=== PATIENT | male | born 1960 | race Caucasian/White ===

== ENCOUNTER 2021-08-12 00:44 | Day surgery (SDC) | payer BC, SELFPAY ==
[2021-07-29 13:41] VITALS: BMI 25.9
--- NOTE | 2021-08-11 16:23 | PM.HPGS ---
History of Present Illness History of Present Illness Consent: Risks, benefits, and alternatives have been discussed and questions answered. Patient agrees to proceed with procedure. Chief complaint: family hx of colon ca, neoplasm screening Narrative: Miguel Agustin is a 61 year old male referred for colon cancer screening. He has a family history of colon cancer, his uncle. Review of Systems Review of Systems: All systems reviewed & are unremarkable except as noted in HPI and below PMFSH Social History Social History Smoking packs per day: 1 Smoking cigarettes per day: 20.0 Years smoked: 25 Smoking pack-years: 25.00 Smoking status: Former smoker Tobacco type: cigarettes Alcohol intake: current Alcohol use details: occasional Substance use: current Substance use type: marijuana Other substance usage details: rare marijuana use Living arrangements: with family Spiritual care concerns: No Meds Home Medications and Allergies Home Medications Medication Instructions Recorded Confirmed Type atorvastatin 10 mg PO DAILY 07/29/21 08/12/21 History fluticasone propionate [Flonase] 50 mcg INTRANASAL DAILY 07/29/21 07/29/21 History hydrochlorothiazide 12.5 mg PO DAILY 07/29/21 07/29/21 History lisinopril 20 mg PO DAILY 07/29/21 07/29/21 History jpshwxg-sutj-mycfc-oreg-capryl 1 cap PO DAILY 07/29/21 07/29/21 History Allergies Allergy/AdvReac Type Severity Reaction Status Date / Time No Known Allergies Allergy Unverified 08/12/21 06:20 Exam Const: General: alert Orientation/consciousness: patient oriented x3 Resp: Auscultation: clear to auscultation bilaterally Cardio: Rhythm: regular rhythm GI: GI Palp: Yes Soft to palpation and No Tenderness to palpation present (GI) Neuro: General: patient oriented x3 Assessment and Plan Assessment and plan (1) Colon cancer screening: Code(s): Z12.11 - Encounter for screening for malignant neoplasm of colon Status: Acute Assessment and Plan: Colonoscopy with possible biopsy or polypectomy or cautery or injection of substances.
[2021-08-12 06:21] VITALS: BP 109/65; PULSE 56; RESP 18; TEMP 36.3; O2SAT 98
[2021-08-12] MEDS: LACTATED RINGERS 1,000 ML 150 ML IV CONT (06:33)
--- NOTE | 2021-08-12 07:08 | WPDANESEPPF ---
Anes - Initial Pre Proc Eval Procedure: Operation Date: 08/12/21 07:30 Proposed Procedures p Screening Colonoscopy - Ney Hardin MD Date/Time: 08/12/21 07:08 Surgeon: Ney Hardin MD Pre Op Diagnosis: family hx of colon ca, neoplasm screening Patient Data Age: 61 Gender: M Height: 1.7 m Weight: 75.1 kg Last Vital Signs Temp 36.3 C L 08/12/21 06:21 Pulse 56 L 08/12/21 06:21 Resp 18 08/12/21 06:21 BP 109/65 08/12/21 06:21 Pulse Ox 98 08/12/21 06:21 Allergies Allergy/AdvReac Type Severity Reaction Status Date / Time No Known Allergies Allergy Unverified 08/12/21 06:20 Home Medications Medication Instructions Recorded Confirmed Type atorvastatin 10 mg PO DAILY 07/29/21 08/12/21 History fluticasone propionate [Flonase] 50 mcg INTRANASAL DAILY 07/29/21 07/29/21 History hydrochlorothiazide 12.5 mg PO DAILY 07/29/21 07/29/21 History lisinopril 20 mg PO DAILY 07/29/21 07/29/21 History ovbnmze-qjip-mvdss-oreg-capryl 1 cap PO DAILY 07/29/21 07/29/21 History Patient hx anesthesia problems: none Family hx anesthesia problems: none Results Review: All pre-operative results and documents have been reviewed as part of the pre-operative evaluation. [facility] Social History Social History Smoking packs per day: 1 Smoking cigarettes per day: 20.0 Years smoked: 25 Smoking pack-years: 25.00 Smoking status: Former smoker Tobacco type: cigarettes Alcohol intake: current Alcohol use details: occasional Substance use: current Substance use type: marijuana Other substance usage details: rare marijuana use Living arrangements: with family Spiritual care concerns: No Anes - Eval Final PreProcedure Day of Procedure 08/12/21 07:08 Patient weight: normal Heart: regular rate and rhythm Lungs: clear to auscultation and normal air movement Airway: Mallampati scale class II Neurological: alert and oriented Last oral intake: >/= 8 hours ASA classification: II Emergent: no Anesthetic plan: proceed Anesthesia type and monitoring: general GIVS Results Review: All pre-operative results and documents have been reviewed as part of the pre-operative evaluation. Informed Consent: The patient's anesthetic plan and its attendant risks and benefits were discussed with the patient/family/POA. Questions were solicited and answers provided to the satisfaction of the patient/family/POA.
[2021-08-12 07:45] VITALS: BP 88/58; PULSE 59; RESP 16; O2SAT 99
[2021-08-12 07:55] VITALS: BP 100/63; PULSE 57; RESP 19; O2SAT 99
[2021-08-12 08:05] VITALS: BP 114/74; PULSE 54; RESP 17; O2SAT 100
== END 2021-08-12 08:10 | disposition home or self-care (01) ==
PROVIDERS: PCP Nurse Practitioner Family; Visit Provider Internal Medicine Gastroenterology
PROC: 0DJD8ZZ Inspection of Lower Intestinal Tract, Via Natural or Artificial Opening Endoscopic (ICD-10-PCS; CPT 45378; principal; 2021-08-12 07:30)
DX: Z12.11 Encounter for screening for malignant neoplasm of colon (principal); K57.30 Diverticulosis of large intestine without perforation or abscess without bleeding; D12.5 Benign neoplasm of sigmoid colon; Z80.0 Family history of malignant neoplasm of digestive organs; Z87.891 Personal history of nicotine dependence; F12.90 Cannabis use, unspecified, uncomplicated
CPT/HCPCS: 45378; 88305; J2704; J7120